=== PATIENT | female | born 1960 | race African-American/Black ===

== ENCOUNTER 2019-10-09 05:45 | Inpatient (IN) | payer OTHER ==
[2019-10-02 15:21] VITALS: BMI 38.0
[2019-10-09] MEDS ORDERED: LOCK ITEM NR ONE (06:38)
[2019-10-09] MEDS ORDERED: MIDAZOLAM HCL 2 MG/2 ML SINGLE DOSE VIAL ONE ×3 (06:55→09:53)
[2019-10-09] MEDS ORDERED: BUPIVACAINE LIPOSOME/PF (EXPAREL) 266 MG/20 ML VIAL ONE (06:55)
[2019-10-09] MEDS ORDERED: SODIUM CHLORIDE 0.9% P/F 10 ML VIAL IJ ONE (06:56)
[2019-10-09] MEDS ORDERED: BUPIVACAINE HCL 50 ML ONE (06:56)
[2019-10-09] MEDS ORDERED: PROPOFOL 20 ML ONE ×2 (07:02)
[2019-10-09] MEDS ORDERED: TRANEXAMIC ACID 1000 MG/10 ML VIAL IVPUSH ONE (08:00)
[2019-10-09] MEDS ORDERED: CELECOXIB 200 MG CAPSULE PO ONE (08:00)
[2019-10-09] MEDS ORDERED: CEFAZOLIN 2 GM in DEXTROSE 5%-WATER - 50 ML IVPB ONE (08:00)
[2019-10-09] MEDS ORDERED: BUPIVACAINE HCL/PF 0.5% (5MG/ML) 10 ML VIAL ONE (08:19)
[2019-10-09] MEDS ORDERED: BACITRACIN 15 GM TUBE TOPICAL OINTMENT ONE (08:35)
[2019-10-09] MEDS ORDERED: ceFAZolin SODIUM 1 GM VIAL ONE ×3 (10:08→20:15)
[2019-10-09] MEDS ORDERED: KETOROLAC TROMETHAMINE 30 MG/1 ML VIAL ONE (10:08)
[2019-10-09] MEDS ORDERED: ONDANSETRON 4 MG/2 ML VIAL ONE (10:08)
[2019-10-09] MEDS ORDERED: VANCOMYCIN 1,000 MG VIAL (RESTRICTED TO ID ONLY) ONE (10:08)
[2019-10-09] MEDS ORDERED: DEXAMETHASONE SOD PHOSPHATE 4 MG/1 ML VIAL ONE (10:08)
[2019-10-09] MEDS ORDERED: TRANEXAMIC ACID 1000 MG/10 ML VIAL ONE ×2 (10:08→10:36)
[2019-10-09] MEDS ORDERED: BENZOIN/ALOE VERA/STORAX/TOLU 58 ML BOTTLE ONE (10:12)
[2019-10-09] MEDS ORDERED: PHENYLEPHRINE HCL 10 MG/1 ML SINGLE DOSE VIAL ONE (10:27)
--- NOTE | 2019-10-09 10:55 | PN ---
Progress Note (short form) - Note Progress Note: 59F s/p RIGHT total knee replacement POD #0. -Pain control: per anaesthesia team. -DVT PPx: -Chemical: ASA 81mg PO BID x 6 weeks. -Mechanical: CÉSAR's, SCD's. -Incentive spirometry q15 min. -PT/OT/Rehab, OOB. -WBAT LLE. -Post-op Ancef x 3 doses. -f/u post-op TOV: 8 hours max. -f/u AM labs. -Diet as tolerated. -Care per medical hospitalist team. -Discharge planning: f/u [facility] [place] [facility] 7-10 days after discharge; call for appointment . -Will follow. Deuce Yañez MD (Orthopaedic Surgery).
[2019-10-09] MEDS ORDERED: ONDANSETRON 4 MG/2 ML VIAL IVPUSH PRN ×2 (10:56→11:02)
[2019-10-09] MEDS ORDERED: MAGNESIUM HYDROX 2400MG/30ML ORAL SUSPENSION 30 ML CUP PO PRN (10:56)
[2019-10-09] MEDS ORDERED: MAG HYDROX/AL HYDROX/SIMETH 30 ML UNIT-DOSE CUP PO PRN (10:56)
--- NOTE | 2019-10-09 10:58 | OP ---
Operative Note - Note: Operative Date: 10/09/19 Pre-Operative Diagnosis: Right knee DJD Operation: Right TKA Findings: Tourniquet Pressure: 350mmHg Tourniquet Time: 99 minutes Implants: Nomi Triathlon. Femur - 3. Tibia - 3. Poly - 11mm, TS. Patella - 27mm, symmetric Post-Operative Diagnosis: Same as Pre-op Surgeon: Deuce Yañez Refinery Operator: Baldev Yañez Anesthesiologist/AUTO CUSTOMIZE PAINTER: Hilario Hart Anesthesia: Spinal Specimens Removed: Bone, soft tissue Estimated Blood Loss (mls): 0 Drains & Tubes with Location: 1 x deep HemoVac Fluid Volume Replaced (mls): 1,000 (Crystalloid) Operative Report Dictated: Yes
[2019-10-09] MEDS ORDERED: LACTATED RINGERS SOLUTION 1,000 ML IV SCH (11:00)
[2019-10-09] MEDS ORDERED: oxyCODONE HCL 5 MG TABLET PO PRN (11:02)
[2019-10-09] MEDS ORDERED: traMADol HCL 50 MG TABLET PO PRN (11:02)
[2019-10-09] MEDS ORDERED: ACETAMINOPHEN 1000 MG/100 ML VIAL (NON FORMULARY) IVPB ONE (11:02)
[2019-10-09] MEDS ORDERED: ACETAMINOPHEN INJECTION 100 ML IVPB ONE (11:26)
--- NOTE | 2019-10-09 13:02 | OP ---
DATE OF OPERATION: 10/09/2019 SURGEON: Deuce Yañez MD TIE MAKER: Baldev Yañez MD PREOPERATIVE DIAGNOSIS: Fixed valgus deformity, tricompartment osteoarthritis, right knee. POSTOPERATIVE DIAGNOSIS: Fixed valgus deformity, tricompartment osteoarthritis, right knee. OPERATION PERFORMED: Right posterior stabilized, cemented total knee arthroplasty (Nomi). ([id number]) ANESTHESIA: Conscious sedation with spinal anesthesia and peripheral nerve block. ANTIBIOTICS: Two g of Ancef, 1 g of vancomycin preop; 1 g of Ancef given at the time of release of the tourniquet; 1 g tranexamic acid utilized. PROCEDURE: With the patient in supine position, the right lower extremity was prepped and draped in the routine manner with Betadine scrub solution, wiped with alcohol, DuraPrep applied. Preop evaluation revealed a fixed valgus deformity angle of approximately 30 degrees with this as a result of the scar contraction on the left side of the knee, which had previously been improved with the use of lateral gastrocnemius flap. A midline incision was utilized. The dissection was taken to the bridge between the incision, which was erred slightly medially to give a bridge of soft tissue of 10 cm from the midline longitudinal incision to the anterior part of the lateral scar. The midline incision enabled easy dissection of the epimysium of the vastus medialis muscle all the way around to the back of the linea aspera, and the soft tissue of the medial aspect of the proximal tibia was resected using Bovie to bring about complete freeing the soft tissues and then curving the incision just at the level of the inferior pole of the patella to meet the posteromedial aspect of the soft tissue vastus medialis incision leaving a cuff of tissue of approximately 2 cm for suture. The vastus medialis was mobilized adequately, and a blunt Hohmann placed in the plane proximal to the suprapatellar pouch behind the interspace between the quadriceps muscles and the femoral bone itself. The patella was easily mobilized laterally to do this. The findings were that of a marked dysplasia of the femoral condyle, both distally as well as the posterior element of the bone bed. The menisci were completely intact and normal. With the knee in flexion, the tibia was dealt with first. An extramedullary alignment jig applied. The knee was cut to neutral perpendicular shaft to plateau. The sizing was first size 3 tibial component. The appropriate jig applied to the proximal surface of the tibia. The tibial surface was prepared appropriately with appropriate drilling and fin cuts into the bone bed to receive a size 3 tibial tray. The femur was cut at 4 degrees of valgus, and 8 mm of distal resection performed. The joint line was not proximalized. The jig setting for the actual box cut was set at and measured off the tibial surface with the knee in flexion with the shoes of the jig placed on the actual tibia to facilitate corrected alignment of the femoral component that it did not fall into internal rotation. We measured a size 3, and the appropriate bone cuts were made with the jig system and the trial components of a size 3 femur and a size 3 tibia with an 11-mm spacer revealed perfect alignment of the knee, congregational of the flexion/extension gaps, which were even at 11 mm. The trapezoid shape of the box was converted to a rectangle in doing this. The popliteus tendon was left well alone and was soft and mobile. The patella was then prepared everting the patella. The cut was made from patellar ligament to quadriceps tendon with an oscillating saw. A size 27-mm patella button was opted for, and the appropriate lollipop jig applied to the retropatellar surface appropriate drilling to receive the pegs of patella component. The bone was thoroughly lavaged. The menisci had been resected using a Bovie in the soft tissue attachment point of each meniscus to cut down postoperative hemorrhage. The patella tracking was excellent with a size 11 polyethylene liner. The knee was almost stable in full extension and stable in flexion. Shuck test revealed flexion stability appropriately. We were happy with sizing and went ahead, after thorough lavage of the tissue beds and bone beds with pulsed lavaged and drying the bone appropriately, cementing was in 1 stage with patella, femur, and tibia done together. All extraneous cement was removed. The polyethylene trial liner was inserted to compress the cement as the knee was held in full extension and pushed into hyperextension to facilitate ingress of cement into the bone bed. All extraneous cement was removed. The cement cured, all extraneous cement removed, and the knee washed out again. A polyethylene size 11 TS polyethylene liner inserted. Excellent stability achieved with this. Patella tracking was normal with a negative thumb test test, and the range of movement was -3 to 130 degrees and complete stability in the coronal and sagittal plain achieved. Wounds were fully lavaged. CLOSURE: The fascia and subvastus closure with 1 Vicryl. Subcutaneous 1-0 and 2-0 Vicryl. Skin 3-0 Monocryl with Steri-Strips. DRAINAGE: A 1/8-inch x1 No complication. Operation went extremely well. The soft tissue reconstruction preoperative revealed the gastroc flap for the deficient lateral tissues, and the original scar 6 clicks from the previous trauma, having been resected enabled easy realignment of the soft tissues. No complications other than this. MD BRYAN Sharpe/[id number] MTDD
[2019-10-09] MEDS: LACTATED RINGERS SOLUTION 1,000 ML IV SCH (13:35)
[2019-10-09] MEDS ORDERED: DEXTROSE 5%-WATER - 50 ML IVPB ONE ×2 (14:10→20:15)
[2019-10-09] MEDS: oxyCODONE HCL 5 MG TABLET PO PRN ×2 (15:53→20:00)
[2019-10-09] MEDS: CEFAZOLIN 2 GM in DEXTROSE 5%-WATER - 50 ML IVPB SCH ×2 (16:51→21:22)
[2019-10-09] MEDS: SENNOSIDES/DOCUSATE COMBO (SENNA PLUS) TABLET (UD) PO SCH (21:22)
[2019-10-09] MEDS: ASPIRIN COATED 81 MG TABLET.EC PO SCH (21:22)
[2019-10-10] MEDS: oxyCODONE HCL 5 MG TABLET PO PRN ×4 (01:40→12:57)
[2019-10-10] MEDS ORDERED: ceFAZolin SODIUM 1 GM VIAL ONE (01:57)
[2019-10-10] MEDS ORDERED: DEXTROSE 5%-WATER - 50 ML IVPB ONE (01:57)
[2019-10-10] MEDS: CEFAZOLIN 2 GM in DEXTROSE 5%-WATER - 50 ML IVPB SCH (04:15)
[2019-10-10 08:06] LABS: CALCIUM 8.7 mg/dl (8.5-10); CREATININE 0.8 mg/dl (0.55-1.3); MAGNESIUM 1.8 mg/dL (1.8-2.4); POTASSIUM 3.9 mmol/L (3.5-5.1)
[2019-10-10 08:12] LABS: HEMATOCRIT 41.7 % (32.4-45.2); HEMOGLOBIN 13.8 GM/dl (10.7-15.3); MCH 28.8 pg (25.7-33.7); MCHC 33.2 g/dl (32.0-36.0); MEAN CELL VOLUME 86.6 fl (80-96); MEAN PLT VOLUME 8.1 fl (7.5-11.1); PLATELET COUNT 343 K/MM3 (134-434); RBC 4.81 M/mm3 (3.60-5.2); RDW 14.4 % (11.6-15.6); WHITE BLOOD COUNT 13.8 K/mm3 (4.0-10.8)
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
[2019-10-10] MEDS: ROSUVASTATIN CA 5 MG TABLET (FP) PO SCH (09:24)
[2019-10-10] MEDS: ASPIRIN COATED 81 MG TABLET.EC PO SCH ×2 (09:24→21:23)
[2019-10-10] MEDS: PANTOPRAZOLE 40 MG TABLET PO SCH (09:24)
[2019-10-10] MEDS: LOSARTAN POTASSIUM 50 MG TABLET (FP) PO SCH (09:25)
[2019-10-10] MEDS: amLODIPine BESYLATE 2.5 MG TABLET (FP) PO SCH (09:25)
[2019-10-10] MEDS: amLODIPine BESYLATE 5 MG TABLET (FP) PO SCH (09:26)
[2019-10-10] MEDS: SENNOSIDES/DOCUSATE COMBO (SENNA PLUS) TABLET (UD) PO SCH ×2 (09:26→21:23)
--- NOTE | 2019-10-10 10:36 | PN ---
Progress Note (short form) - Note Progress Note: POD __1__, s/p ___Right knee TKA Pt seen and examined. Doing well post op. Pain well controlled. Has been oob ambulating with PT. Passing flatus. Tolerating diet. Voiding without issue. Denies cp/sob, n/v/d. Hemovac has no drainage over night, appears to have been partially pulled out. GEN: A&0x3, NAD CV: Lungs: CTA b/l ABD: soft, non-distended, non-tender. Right knee: hemovac partially out with 0____serosanguinous drainage in reservoir. Surgical dressing c/d/i. Compartments soft, no calf tenderness or swelling noted b/l. TEDs/SCDS in place b/l. 5/5 dorsi/plantar flexion b/l, 5/5 EHl/FHL b/l, SILT b/l les. Assessment/Plan: __59__y/o F with history of __Rt knee__ OA now POD __1___ s/p R __TKA___. Pt doing well post-operatively. Removed drain at bedside since partially out. Afebrile, VSS. Pain controlled. -Pain control as ordered -DVT PPx: Chemical: ASA 81 mg po BID x 6 weeks, Mechanical: CÉSAR's, SCD's -Incentive Spirometry -PT/OT/Rehab, OOB -WBAT LLE/RLE -Keep drain in place, monitor I&Os -f/u am labs -Home meds ordered as appropriate -Care per medical hospitalist team.
--- NOTE | 2019-10-10 15:00 | PN ---
Progress Note (short form) - Note Progress Note: ANESTHESIA POSTOP 59 yo female POD#1 Patient in bed. No complaints. Tolerating PO. Pain adequately controlled VSS, Afebrile Continue current care. Encouraged IS and active participation in PT
[2019-10-11 08:11] LABS: HEMATOCRIT 39.8 % (32.4-45.2); HEMOGLOBIN 12.9 GM/dl (10.7-15.3); MCH 27.9 pg (25.7-33.7); MCHC 32.5 g/dl (32.0-36.0); MEAN CELL VOLUME 85.9 fl (80-96); MEAN PLT VOLUME 8.3 fl (7.5-11.1); PLATELET COUNT 305 K/MM3 (134-434); RBC 4.63 M/mm3 (3.60-5.2); RDW 14.5 % (11.6-15.6); WHITE BLOOD COUNT 12.4 K/mm3 (4.0-10.8)
[2019-10-11 08:13] LABS: BILIRUBIN,TOTAL 1.7 mg/dl (0.2-1); CALCIUM 8.3 mg/dl (8.5-10); CREATININE 0.7 mg/dl (0.55-1.3); MAGNESIUM 1.8 mg/dL (1.8-2.4); POTASSIUM 3.7 mmol/L (3.5-5.1); TOT PROT 6.4 g/dl (6.4-8.2)
--- NOTE | 2019-10-11 08:28 | PN ---
Progress Note (short form) - Note Progress Note: ORTHOPAEDIC SURGERY POD #2 No acute events per RN notes. Doing well post-op. Pain well controlled. Sittin gin chair at bedside with legs in extension. Towel roll under heels Continues to get OOB and ambulate with PT (notes reviewed) Voiding spontaneously. Tolerating diet. Denies n/v/f/c, cp, palpitations, sob or rahman. Afebrile. AVSS GEN: A&0x3, NAD CV: RRR Lungs: Unlabored respirations on room air Right knee: Jumpstart dressing c/d/i. All Compartments soft, no calf tenderness or swelling noted b/l. TEDs/SCDS in place b/l. 5/5 dorsi/plantar flexion b/l, 5/5 EHl/FHL b/l, SILT b/l les. A/P: 59 yo female POD #2 s/p Right TKA -Pain control as ordered -DVT PPx: - ASA 81 mg po BID x 6 weeks - CÉSAR's, SCD's -Incentive Spirometry -PT/OT/Rehab, OOB -WBAT RLE -Home meds ordered as appropriate -DC planning for home today. Home PT established Above plan discussed with Dr. Baldev Yañez and agrees.
[2019-10-11] MEDS: oxyCODONE HCL 5 MG TABLET PO PRN (09:40)
[2019-10-11] MEDS: LOSARTAN POTASSIUM 50 MG TABLET (FP) PO SCH (09:40)
[2019-10-11] MEDS: ROSUVASTATIN CA 5 MG TABLET (FP) PO SCH (09:41)
[2019-10-11] MEDS: SENNOSIDES/DOCUSATE COMBO (SENNA PLUS) TABLET (UD) PO SCH ×2 (09:41→21:40)
[2019-10-11] MEDS: amLODIPine BESYLATE 5 MG TABLET (FP) PO SCH (09:41)
[2019-10-11] MEDS: ASPIRIN COATED 81 MG TABLET.EC PO SCH ×2 (09:41→21:36)
[2019-10-11] MEDS: PANTOPRAZOLE 40 MG TABLET PO SCH (09:41)
[2019-10-11] MEDS: amLODIPine BESYLATE 2.5 MG TABLET (FP) PO SCH (09:41)
--- NOTE | 2019-10-11 09:52 | DS ---
Physical Exam: SUBJECTIVE: Patient seen and examined OBJECTIVE: Vital Signs Period Temp Pulse Resp BP Sys/Herron Pulse Ox Last 24 Hr 99.0 F-100.0 F 95-126 16-81 131-155/58-83 91-96 PHYSICAL EXAM GENERAL: The patient is awake, alert, and fully oriented, in no acute distress. HEAD: Normal with no signs of trauma. EYES: PERRL, extraocular movements intact, sclera anicteric, conjunctiva clear. ENT: Ears normal, nares patent, oropharynx clear without exudates, moist mucous membranes. NECK: Trachea midline, full range of motion, supple. LUNGS: Breath sounds equal, clear to auscultation bilaterally, no wheezes, no crackles, no accessory muscle use. HEART: Regular rate and rhythm, S1, S2 without murmur, rub or gallop. ABDOMEN: Soft, nontender, nondistended, normoactive bowel sounds, no guarding, no rebound, no hepatosplenomegaly, no masses. EXTREMITIES: 2+ pulses, warm, well-perfused, no edema. NEUROLOGICAL: Cranial nerves II through XII grossly intact. Normal speech, gait not observed. PSYCH: Normal mood, normal affect. SKIN: Warm, dry, normal turgor, no rashes or lesions noted. LABS Laboratory Results - last 24 hr 10/11/19 10/11/19 07:21 07:21 WBC 12.4 H RBC 4.63 Hgb 12.9 Hct 39.8 MCV 85.9 MCH 27.9 MCHC 32.5 RDW 14.5 Plt Count 305 MPV 8.3 Sodium 136 Potassium 3.7 Chloride 103 Carbon Dioxide 24 Anion Gap 9 BUN 14.0 Creatinine 0.7 Est GFR (CKD-EPI)AfAm 110.69 Est GFR (CKD-EPI)NonAf 95.50 Random Glucose 118 H Calcium 8.3 L Magnesium 1.8 Total Bilirubin 1.7 H AST 24 ALT 18 Alkaline Phosphatase 109 Total Protein 6.4 Albumin 3.0 L HOSPITAL COURSE: Date of Admission:10/09/19 Date of Discharge: 10/11/19 Minutes to complete discharge: 50 Discharge Summary Reason For Visit: OA RIGHT KNEE Current Active Problems DVT prophylaxis (Acute) HLD (hyperlipidemia) (Acute) HTN (hypertension) (Acute) Prophylactic measure (Acute) Status post right knee replacement (Acute) Condition: Stable - Instructions Diet, Activity, Other Instructions: Dr. Yañez Discharge Instructions for Knee Replacement Post Operative Instructions Physical activity Physical Therapist will come to your home for the first 5 days. You will be set up with outpatient PT at your first post-operative visit. Use assistive devices for ambulation at all times. Weight bearing as tolerated on your surgical side. Do not put pillow under knee. May put pillow under heel. Wound care Leave your surgical dressing in place. Do not change the dressing until seen by your surgeon in the office. No baths or showers. Do not submerge your incision. Do not apply any ointments or lotions to your incision. Please call the office if your dressing is soiled/dirty or is falling off. Apply Graduated Compression Stockings (TEDS) to both lower extremities - remove daily for hygiene ONLY. Diet There are no dietary restrictions. Eat healthy, high-fiber foods. Drink 6 to 8 glasses of liquid each day. This will assist in keeping your bowels are regular. Pain management Any pain prescription medication ordered should be taken as prescribed for moderate to severe pain. Do not take additional Tylenol while taking Percocet. Take Aspirin 81 mg two times a day for a total of 6 weeks to prevent blood clots. Call Dr. Yañez for any of the following: Severe pain not relieved by medication Fever of 101 or higher Excessive bleeding or drainage on dressing Inability to urinate If you experience chest pain or shortness of breath, please seek emergency care immediately. Please call the office at to confirm your post-op appointment for the week following surgery. Disposition: HOME - Home Medications Comprehensive Discharge Medication List: Ambulatory Orders Amlodipine Besylate 2.5 mg PO DAILY 10/02/19 Amlodipine Besylate 5 mg PO DAILY 10/02/19 Losartan Potassium 100 mg PO DAILY 10/02/19 Naproxen Sodium [Aleve] 220 mg PO ASDIR PRN 10/02/19 Rosuvastatin Calcium 5 mg PO DAILY 10/02/19 Aspirin Coated [Ecotrin -] 81 mg PO BID #90 tablet.ec 10/11/19 Problem List - Problems (1) HTN (hypertension) Code(s): I10 - ESSENTIAL (PRIMARY) HYPERTENSION (2) Status post right knee replacement Code(s): Z96.651 - PRESENCE OF RIGHT ARTIFICIAL KNEE JOINT (3) DVT prophylaxis Code(s): Z29.9 - ENCOUNTER FOR PROPHYLACTIC MEASURES, UNSPECIFIED (4) HLD (hyperlipidemia) Code(s): E78.5 - HYPERLIPIDEMIA, UNSPECIFIED (5) Prophylactic measure Code(s): Z29.9 - ENCOUNTER FOR PROPHYLACTIC MEASURES, UNSPECIFIED
[2019-10-11] MEDS ORDERED: MAGNESIUM SULF 50% (8.12 MEQ/2 ML-1 GM VIAL) IVPB ONE (09:54)
[2019-10-11] MEDS ORDERED: ALBUTEROL SO4 2.5/IPRATROPIUM 0.5 INH SOL 3 ML VIAL.NEB. NEB PRN (09:57)
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
[2019-10-11] MEDS ORDERED: POTASSIUM CHLORIDE ORAL LIQUID 20 MEQ/15 ML PO ONE ×2 (10:15→16:30)
[2019-10-11] MEDS ORDERED: MAGNESIUM SULFATE IN WATER 2 GM/50 ML IVPB IVPB ONE ×2 (10:15→16:30)
--- NOTE | 2019-10-11 10:54 | EKG ---
Test Reason : Blood Pressure : / mmHG Vent. Rate : 111 BPM Atrial Rate : 111 BPM P-R Int : 122 ms QRS Dur : 070 ms QT Int : 328 ms P-R-T Axes : 070 016 061 degrees QTc Int : 446 ms SINUS TACHYCARDIA NONSPECIFIC ST ABNORMALITY NO PREVIOUS ECGS AVAILABLE Confirmed by FEROZ GARZA MD ([id number]) on 10/11/2019 10:54:38 AM Referred By: Deuce Yañez Confirmed By:FEROZ GARZA MD
--- NOTE | 2019-10-11 13:34 | PATH ---
Surgical Pathology Report Patient Name: RACHAEL BOX Med. Rec. #: [id number] /Age/Gender: 1960 (Age: 59) / F Account: [id number] Location: [facility] MED-[facility] Taken: 10/09/2019 Received: 10/09/2019 Reported: 10/11/2019 Physicians: Deuce Yañez M.D. Specimen(s) Received RIGHT KNEE BONES Clinical History Osteoarthritis right knee Final Diagnosis BONES, KNEE, RIGHT, ARTHROPLASTY: BONE WITH DEGENERATIVE JOINT DISEASE, DENSE FIBROCONNECTIVE TISSUE, AND FIBROADIPOSE TISSUE. Electronically Signed Wilma Starks M.D. Gross Description Received in formalin labeled "right knee bones," is an 11.0 x 9.0 x 1.7 cm aggregate of payton-yellow, irregular portions of bone and soft tissue. The tibial plateau measures 6.7 x 5.0 x 1.8 cm. There is a 2.9 cm greatest dimension area of eburnation present. The remaining articular surfaces are payton-yellow and focally granular. The underlying trabecular bone is yellow and hard. Rotary Machine Operator sections are submitted in one cassette, following decalcification. /10/10/2019 saudi10/10/2019
[2019-10-11] MEDS: LACTATED RINGERS SOLUTION 1,000 ML IV SCH (17:51)
[2019-10-12 08:13] LABS: HEMATOCRIT 41.2 % (32.4-45.2); HEMOGLOBIN 13.6 GM/dl (10.7-15.3); MCH 28.4 pg (25.7-33.7); MCHC 32.9 g/dl (32.0-36.0); MEAN CELL VOLUME 86.4 fl (80-96); PLATELET COUNT 326 K/MM3 (134-434); RBC 4.77 M/mm3 (3.60-5.2); RDW 14.6 % (11.6-15.6); WHITE BLOOD COUNT 11.4 K/mm3 (4.0-10.8)
[2019-10-12 08:19] LABS: CALCIUM 8.6 mg/dl (8.5-10); CREATININE 0.6 mg/dl (0.55-1.3); POTASSIUM 3.8 mmol/L (3.5-5.1)
[2019-10-12] MEDS: amLODIPine BESYLATE 2.5 MG TABLET (FP) PO SCH (10:06)
[2019-10-12] MEDS: PANTOPRAZOLE 40 MG TABLET PO SCH (10:06)
[2019-10-12] MEDS: ROSUVASTATIN CA 5 MG TABLET (FP) PO SCH (10:06)
[2019-10-12] MEDS: LOSARTAN POTASSIUM 50 MG TABLET (FP) PO SCH (10:06)
[2019-10-12] MEDS: ASPIRIN COATED 81 MG TABLET.EC PO SCH (10:06)
[2019-10-12] MEDS: amLODIPine BESYLATE 5 MG TABLET (FP) PO SCH (10:06)
[2019-10-12] MEDS: SENNOSIDES/DOCUSATE COMBO (SENNA PLUS) TABLET (UD) PO SCH (10:08)
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
[2019-10-12] MEDS ORDERED: ACETAMINOPHEN 500 MG TABLET (FP) PO PRN (14:43)
[2019-10-12 18:34] VITALS: BP 135/67; PULSE 117; TEMP 98
== END 2019-10-12 19:45 | disposition home health service (06) | DRG 302 ==
LOC: FM/S 05:45
PROVIDERS: ADMIT Orthopaedic Surgery Orthopaedic Surgery of the Spine; ATTEND Orthopaedic Surgery Orthopaedic Surgery of the Spine
PROC: 0SRC0J9 Replacement of Right Knee Joint with Synthetic Substitute, Cemented, Open Approach (ICD-10-PCS; principal; 2019-10-09 08:58)
DX: M17.11 Unilateral primary osteoarthritis, right knee (principal); N28.1 Cyst of kidney, acquired; I10 Essential (primary) hypertension; M21.061 Valgus deformity, not elsewhere classified, right knee; E66.9 Obesity, unspecified; R00.0 Tachycardia, unspecified; J98.11 Atelectasis; E78.5 Hyperlipidemia, unspecified; K76.0 Fatty (change of) liver, not elsewhere classified; R50.82 Postprocedural fever; Z68.38 Body mass index [BMI] 38.0-38.9, adult
CPT/HCPCS: 36415; 71045-TC-FY; 71275-TC; 73560-TC-RT-FY; 80048; 80053; 82247; 83735; 84443; 85027; 88304-TC; 88311-TC; 93005; 94760; 97116-GP; 97163-GP; J0131; Q9967